=== PATIENT | female | born 1955 | race Caucasian/White ===

== ENCOUNTER 2020-02-04 12:41 | Emergency (ER) | payer OTHER ==
[~2020-02-04] VITALS: Ht 152.4 cm; Wt 74.8 kg
--- NOTE | 2020-02-04 13:02 | NUR ---
Patient came from home for evaluation. She is complaining of left upper quadrant pressure abdominal pain radiating to her back since last night.. She denies nausea, vomiting, and diarrhea.
--- NOTE | 2020-02-04 13:02 | NUR ---
Placed in room 2. Placed on monitoring tech, blood pressure machine and pulse oximeter. To gown for exam. Side rails up.
[2020-02-04 13:03] VITALS: BP_SYST 164
--- NOTE | 2020-02-04 13:08 | NUR ---
ER at bedside examining patient.
[2020-02-04] MEDS ORDERED: traMADol HCL HCL 50 MG TABLET (ULTRAM) PO ONE (13:15)
--- NOTE | 2020-02-04 13:20 | NUR ---
Medicated the pt w/ Tramdol. Will reassess
--- NOTE | 2020-02-04 13:30 | NUR ---
pt reports feeling better
--- NOTE | 2020-02-04 13:42 | NUR ---
Alecia whitaker in [facility], [place] - 02/04/20 at 1359 by [email or web address] is 272.
[2020-02-04 13:56] LABS: BASOPHILS # (AUTO) 0.1 K/uL (0.0-0.2); BASOPHILS % (AUTO) 0.8 % (0.0-2.0); EOSINOPHILS # (AUTO) 0.1 K/uL (0.0-0.4); EOSINOPHILS % (AUTO) 0.4 % (0.0-4.0); HEMATOCRIT 42.5 % (36-48); HEMOGLOBIN 13.9 g/dL (12.0-16.0); LYMPHOCYTES # (AUTO) 1.4 K/uL (1.0-5.5); LYMPHOCYTES % (AUTO) 12.5 % (20.5-51.5); MEAN CORPUSCULAR HEMOGLOBIN 28 pg (27-31); MEAN CORPUSCULAR HGB CONC 33 % (32-36); MEAN CORPUSCULAR VOLUME 86 fL (79.0-98.0); MONOCYTES # (AUTO) 0.7 K/uL (0.0-1.0); MONOCYTES % (AUTO) 6.1 % (1.7-9.3); NEUTROPHILS # (AUTO) 9.2 K/uL (1.8-7.7); NEUTROPHILS % (AUTO) 80.2 % (40.0-70.0); PLATELET COUNT (AUTO) 171 K/uL (130-430); RED BLOOD CELL COUNT(AUTO) 4.96 MIL/uL (4.2-6.2); RED CELL DISTRIBUTION WIDTH 16.6 % (9.0-15.0); WHITE BLOOD COUNT (AUTO) 11.5 K/uL (4.8-10.8)
[2020-02-04 14:09] LABS: CALCIUM 8.7 mg/dL (8.4-11.0); CREATININE 0.72 mg/dL (0.55-1.30); POTASSIUM 3.9 mmol/L (3.5-5.1)
[2020-02-04 14:16] LABS: ALBUMIN 3.8 g/dL (3.4-4.8); TOTAL BILIRUBIN 0.4 mg/dL (0.0-1.0)
[2020-02-04 15:10] VITALS: BP_SYST 164
--- NOTE | 2020-02-04 15:11 | NUR ---
Patient given written and verbal discharge instructions and verbalizes understanding. ER MD discussed with patient the results and treatment provided. Patient in stable condition. ID arm band removed. Rx of Naproxen and Tramadol given. Patient educated on pain management and to follow up with PMD. Pain Scale 3/10. Opportunity for questions provided and answered. Medication side effect fact sheet provided.
== END 2020-02-04 15:10 | disposition home or self-care (01) ==
LOC: SED 12:41
DX: R07.89 Other chest pain (principal)
CPT/HCPCS: 36415; 71045; 80053; 82550-TC; 83880; 84484; 85025; 93005; 99285